=== PATIENT | female | born 1985 | race Caucasian/White ===

== ENCOUNTER 2016-12-23 02:14 | Emergency (ER) | payer OTHER ==
--- NOTE | ~2016-12-23 | ER ---
PATIENT'S NAME: LALO MILLER [facility] AGE: 31 Y [address] ROOM: [place] [address] LOCATION: [facility] ADMIT DATE: 12/23/2016 ER/Outpatient Report DISCHARGE DATE: 12/23/2016 FAMILY PHYSICIAN: Sigrid Hills ATTENDING PHYSICIAN: Bong Cobos Admission date and time are documented in the medical record. I saw the patient at 0230 hours. CHIEF COMPLAINT: Numbness, right leg. HISTORY OF PRESENT ILLNESS: This patient is a 31-year-old female who has had history of sciatica and low back pain for months. Over the past 3 days, it has gotten worse with sciatica down the right leg to the right foot. It is numb and tingly. She did have a fall several years ago injuring her tail bone. Since that time, she has had no distinct injury. She had an MRI scan and apparently was normal about a year ago. No fever, chills, or sweats. No coughs, colds, or flus. No bladder or bowel dysfunction. No real weakness. HOME MEDICATIONS: None. ALLERGIES: NONE. SOCIAL HISTORY: Nonsmoker. Occasional intake of alcohol. SIGNIFICANT PAST MEDICAL HISTORY: Depression. OPERATIONS: Cholecystectomy, . REVIEW OF SYSTEMS: All systems reviewed by me are negative with the exception of those discussed in the history of present illness. PHYSICAL EXAMINATION: VITAL SIGNS: Temperature 97.4, tympanic, pulse 68, respirations 17, blood pressure 140/73, and O2 sat on room air is 98%. ABDOMEN: Soft, nondistended, nontender. Good bowel tones. PELVIS: Stable, nontender. PATIENT'S NAME: LALO MILLER [facility] AGE: 31 Y [address] ROOM: [place] [address] LOCATION: [facility] ADMIT DATE: 12/23/2016 ER/Outpatient Report DISCHARGE DATE: 12/23/2016 FAMILY PHYSICIAN: Sigrid Hills ATTENDING PHYSICIAN: Bong Cobos EXTREMITIES: Moves all 4 extremities. She has good strength in both lower extremities. NEUROVASCULAR: Intact. Pulses intact. Straight leg raising negative. Sensory is normal in both legs; however, diminished in the right leg compared to the left leg to sharp pinprick. IMPRESSION: Low back pain with right sciatica. PLAN: The patient is discharged home. Observation. Activity as tolerated. Ice, heat, or combination intermittently to sore areas as needed. Medrol Dosepak take as directed. Flexeril 10 mg 3 times a day #30. We will schedule for an MRI scan of the lumbosacral spine. We will send her to [facility] and they will call to setup the time. Discussion ensued with the patient concerning my findings and recommendations, she understands. MD IRIS ALVARENGA/modl /[id number] d: 12/23/16 0447 t: 12/23/16 1829, OUTPATIENT REPORT
== END 2016-12-23 03:05 | disposition disaster alternative care site (69) ==
LOC: GMED 02:14
DX: M54.41 Lumbago with sciatica, right side (principal); F32.9 Major depressive disorder, single episode, unspecified; Z90.49 Acquired absence of other specified parts of digestive tract; Z98.890 Other specified postprocedural states

== ENCOUNTER → 2016-12-25 | Outpatient (CLI) | payer OTHER | END | disposition disaster alternative care site (69) | LOC: GRAD 15:25 | DX: R20.0 Anesthesia of skin (principal); M47.896 Other spondylosis, lumbar region ==